=== PATIENT | female | born 1935 | race Caucasian/White ===

== ENCOUNTER → 2016-12-04 | Outpatient (CLI) | payer MEDICARE ==
[~2016-12-04] MED LIST: AMLO10 PO; ASPI1TAB69 PO; CALC500T35 PO; DONE10TA7 PO; ESTR0.62 VAGINAL; ESTR1.25 PO; FENT12DI T-DERMAL; FENT25DI T-DERMAL; FURO1TAB60 PO; GABA300C5 PO; HYDR-3533 PO; HYDR-755 PO; MIRA0.752 PO; MULT1TAB84 PO; POTA1TAB4 PO; PREV30CA11 PO; VENTAER INH
[2016-12-04 14:39] LABS: BASOPHIL # 0.1 TH/MM3 (0-0.2); BASOPHIL % 0.8 % (0.0-2.0); EOSINOPHIL # 0.5 TH/MM3 (0-0.4); EOSINOPHIL % 7.1 % (0.0-4.0); HEMATOCRIT 39.3 % (35.0-46.0); HEMO FLAGS DIFF FINAL; LYMPH % 39.1 % (9.0-44.0); LYMPHOCYTE # 2.6 TH/MM3 (1.0-4.8); MEAN CELL VOLUME 91.7 FL (80.0-100.0); MEAN CORPUSCULAR HEMOGLOBIN 30.5 PG (27.0-34.0); MEAN CORPUSCULAR HGB CONC 33.3 % (32.0-36.0); PLATELET COUNT 207 TH/MM3 (150-450); RED BLOOD COUNT 4.29 MIL/MM3 (4.00-5.30); RED CELL DISTRIBUTION WIDTH 13.1 % (11.6-17.2); WHITE BLOOD COUNT 6.6 TH/MM3 (4.0-11.0)
[2016-12-04 14:46] LABS: BACTERIA, URINE RARE /hpf; BLOOD, URINE NEG (NEG); COMMENT (UR) CULT NOT INDICATED; CULTURE IF INDICATED CULT NOT INDICATED; GLUCOSE,URINE NEG (NEG); KETONE, URINE NEG (NEG); NITRITE,URINE NEG (NEG); SQUAMOUS EPITHELIAL CELL URINE <1 /hpf (0-5); URINE COLOR LIGHT-YELLOW (YELLW/STRAW)
[2016-12-04 15:09] LABS: ALKALINE PHOSPHATASE 63 U/L (45-117); ALT (GPT) 24 U/L (10-53); ANION GAP 6 MEQ/L (5-15); AST (GOT) 20 U/L (15-37); BICARBONATE 31.5 MEQ/L (21.0-32.0); BLOOD UREA NITROGEN 14 MG/DL (7-18); CHLORIDE 103 MEQ/L (98-107); GLOMERULAR FILTRATION RATE 69 ML/MIN (>89); GLUCOSE,FASTING 93 MG/DL (74-99); POTASSIUM 3.9 MEQ/L (3.5-5.1); SODIUM (NA) 140 MEQ/L (136-145); TOTAL BILIRUBIN ADULT 0.2 MG/DL (0.2-1.0)
== END ==
LOC: CPRE 13:50
PROVIDERS: ATTEND Obstetrics & Gynecology Gynecology
DX: Z01.812 Encounter for preprocedural laboratory examination (principal); N39.3 Stress incontinence (female) (male)
CPT/HCPCS: 36415; 80053; 81001; 85025

== ENCOUNTER → 2016-12-10 | Day surgery (SDC) | payer MEDICARE ==
--- NOTE | 2016-12-04 14:59 | MH ---
cc: MARLEE WOLFE MD, EUGENE M. MD DATE OF ADMISSION: 12/10/2016 DATE OF : 1935 REASON FOR ADMISSION The patient is admitted for transobturator sling. HISTORY OF PRESENT ILLNESS The patient is an 81-year-old white female, 3, para 3, who has had issues with stress urinary incontinence since she has undergone a pelvic repair procedure in May 2016. At the time of the procedure she had significant pelvic organ prolapse, stage III. Postoperatively she has done well except has demonstrated de angelika stress incontinence. Urine cultures have been negative. Her urodynamic studies show no obstructive uropathy, no detrusor instability. Her volumes are 153/215/233 with a leak point at 155. The patient notes that the incontinence is impacting negatively on her quality of life and wants to proceed with a transobturator sling procedure. PAST MEDICAL HISTORY 1. Chronic back pain. 2. Neuropathy, uncertain etiology. 3. Hypertension. 4. Osteoporosis. 5. Osteoarthritis. 6. Atrial fibrillation. 7. Restless leg syndrome. 8. Asthma. PAST SURGICAL HISTORY 1. Total vaginal hysterectomy. 2. Cholecystectomy. 3. Appendectomy. 4. Thyroid tumor removal. 5. Bladder procedure. 6. Anterior and posterior repair x3. 7. InterStim placement with removal. 8. Tonsillectomy. 9. Vaginal vault suspension. ALLERGIES CYMBALTA. SOCIAL HISTORY . Good social support. No alcohol or drugs. 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 Hysterectomy was for benign condition. OB HISTORY Three vaginal deliveries, largest baby 8 pounds. MEDICATIONS 1. Percocet 30 mg q. daily. 2. Mirapex one q. daily. 3. Norvasc 10 mg q. daily. 4. Hydrocodone 5 mg q.4h. p.r.n. 5. Gabapentin 300 mg t.i.d. 6. Furosemide 40 mg q. daily. 7. Fentanyl patch, one patch q.3 days. 8. Vaginal estrogen cream every other day. 9. Premarin 1.25 p.o. q. daily. 10.Albuterol inhaler p.r.n. FAMILY HISTORY Noncontributory. REVIEW OF SYSTEMS As above. No chest pain, orthopnea, PND. No nausea, vomiting, fever or chills. No vaginal discharge. PHYSICAL EXAMINATION VITAL SIGNS: She is afebrile. Vital signs stable. Blood pressure 160/80. Weight 145, BMI 25, height 5 feet 4 inches. GENERAL: The patient is alert and oriented in no acute distress. No sign of cognitive dysfunction or depression. HEENT: Within normal limits. NECK: Supple. No JVD. CHEST: Clear. HEART: Regular rate and rhythm. ABDOMEN: Soft, nontender. No hepatosplenomegaly. No CVA tenderness. PELVIC: Exam will be detailed under anesthesia. EXTREMITIES: Normal. SKIN: Without rashes. NEUROLOGIC: Nonfocal. No DVT signs. ASSESSMENT Patient with de angelika stress incontinence following pelvic support procedure. DISCUSSION/PLAN The patient and I discussed options for management and treatment. She is aware of the risks, benefits and alternatives of the planned procedure including damage to surrounding organs, bleeding, infection, possibility of urinary retention and need for catheterization long-term. Also, aware of the possibility that the stress incontinence may not be remedied. The patient reports a distant history of possible prior sling placement but would not be able to obtain any records to support that. On clinical exam there is no sling that I can identify and with her prior anterior repair we do not see a sling, but if the sling is there that would definitely increase her risk of complications. At this point we anticipate outpatient procedure. She will use DVT prophylaxis with sequential compression device and Ancef two grams IV for antibiotic prophylaxis. MD SUJATA Galvez/BT /2:07 PM /2:45 PM
[~2016-12-10] MED LIST changes: +ACETAMINOPHEN 1000 MG/100 ML VIAL IV ONE; +APREPITANT 40 MG CAP ONE; +CHLORHEXIDINE GLUCONATE 2 % 1 PACK (2 CLOTHS) TOPICAL PRN; +DEXAMETHASONE SOD PHOS 4 MG/ML VIAL ONE; +DO NOT ADM ANY ANTICOAGULANT DRUGS PRN; +ESTROGENS CONJUGATED VAG CREA 15 APPL/30 GM TUBE ONE; +FAMOTIDINE 20 MG/2 ML VIAL ONE; +FLUORESCEIN SOD 10% SOLN 500 MG/5 ML AMP ONE; +INSULIN HUMAN REGULAR 1,000 UNITS/10 ML VIAL SQ PRN; +KETOROLAC TROMETHAMINE 10 MG TAB PO PRN; +KETOROLAC TROMETHAMINE 30 MG/ML (IVP) VIAL IV PUSH PRN; +KETOROLAC TROMETHAMINE 60 MG/2 ML (IM) VIAL IM ONE; +KETOROLAC TROMETHAMINE 60 MG/2 ML (IM) VIAL IM PRN; +LACTATED RINGER'S 1000 ML IV PRN; +LIDOCAINE 1%/EPINEPHrine 1:100,000 SOLN 50 ML VIAL ONE; +METHYLENE BLUE 10 MG/ML VIAL OTHER ONE; +METOPROLOL TARTRATE 25 MG TAB PO PRN; +METOPROLOL TARTRATE 5 MG/5 ML VIAL IV PUSH PRN; +METOPROLOL TARTRATE 5 MG/5 ML VIAL ONE; +MIDAZOLAM HCL 2 MG/2 ML VIAL ONE; +NEOSTIGMINE 3 MG/3 ML SYR IV ONE; +ONDANSETRON HCL 4 MG/2 ML VIAL IV PUSH ONE; +ONDANSETRON HCL 4 MG/2 ML VIAL IV PUSH PRN; +POVIDONE IODINE 5% (ANTISEPSIS KIT) 4 APPLICATIONS EACH NARE PRN; +PROPOFOL 200 MG/20 ML AMP IV ONE; +SODIUM CHLORID 0.9% 500 ML IV PRN; +ceFAZolin 2 GM PREMIX 50 ML IV SCH; +ePHEDrine/NS 25 MG/5 ML SYR IV ONE; +fentaNYL CITRATE 250 MCG/5 ML AMP ONE
[2016-12-10 06:00] VITALS: BP 140/69; PULSE 75; RESP 16; TEMP 98.7; O2SAT 99
--- NOTE | 2016-12-10 09:43 | MP ---
cc: MARLEE WOLFE MD DATE OF SURGERY 12/10/2016 PREOPERATIVE DIAGNOSIS Stress urinary incontinence. POSTOPERATIVE DIAGNOSES Stress urinary incontinence. Cystocele midline, grade 2. PROCEDURE 1. Transobturator midurethral sling [employer] manufactured by [email or web address], polypropylene. 2. Anterior repair. 3. Diagnostic cystoscopy. SURGEON MD Homar ANESTHESIA General, mask. ESTIMATED BLOOD LOSS 25 cc. URINE OUTPUT 200 cc. FLUIDS 1000 cc crystalloids TER[employer]ZZ[employer]LE [employer] [place] x 2. FINDINGS External genitalia poorly estrogenized. POP-Q score: Aa is -1, Ap is -2. Point C is -6. Total vaginal length is 8. Genital hiatus is 5. Perineal body is 5. Following repair, Aa is 3. The cystoscopy following repair shows normal trigone, good coaptation of urethra. Ureteral orifices patent x 2. Dome and base of bladder are normal. SPECIMENS None. COMPLICATIONS None. DISPOSITION To Recovery stable. COUNTS Needle and sponge counts correct. DRAINS Horton catheter. ANTIBIOTIC PROPHYLAXIS Ancef 2 grams IV. DVT PROPHYLAXIS Sequential compression device. TIME-OUT PROCEDURE Per protocol. SUMMARY OF INDICATIONS AND PROCEDURE The patient history of de angelika stress incontinence following pelvic repair. She had significant pelvic organ prolapse repaired in May of 2016, developed postoperatively stress urinary incontinence that was unresponsive to estrogen therapy and physical therapy. Urodynamic studies showed leak point pressure at 155 with a total capacity of 250, no detrusor instability, no significant post-void residual. Decision was made to proceed with repair with a sling. PROCEDURE The patient was taken to the operating theatre, identified, prepped and draped in a fashion appropriate for the planned procedure. She was placed in dorsal lithotomy position with careful attention paid to placement of legs in stirrups to avoid undue stress to sensitive neurovascular structures. The above findings were noted, neurovascular integrity documented. A Horton catheter was placed, methylene blue was instilled into the bladder. The obturator foramen were identified on each side, infiltrated with epinephrine/lidocaine solution. The urethral length was identified by palpating the Horton bulb. We infiltrated the anterior vaginal wall with epinephrine/lidocaine solution, made a midline incision with sharp scissors, took this up to approximately 1 cm from the urethral meatus and down to approximately 2 cm from the vaginal apex, mobilized the bladder and the urethra. There was some scarring around the mid-urethral area suggestive or prior sling but there was no synthetic sling that I could identify. It is possible she may have had an autologous sling placed prior or perhaps a biologic, but there was no synthetic material identified. The C-hook was used to place from the lateral to medial position on the right side without complication. On the left side the same procedure was performed. There was no spill of methylene blue from the bladder or urethra. The sling was placed and then a scalpel handle was used as a spacer to cinch the sling into position in the mid-urethra. There was a small amount of bleeding on the left side which was rendered hemostatic with a [id number] suture. Anterior repair was performed in standard fashion. The vaginal mucosa was trimmed. The vaginal mucosa was closed with a delayed absorbable [id number] suture series of sutures. Hemostatic matrix was used to augment hemostasis to obviate the need for packing. Cystoscopy was performed using a 17-[place] bridge, a 70-degree scope. The above findings were noted. Neurovascular integrity was documented. The procedure was concluded, the patient reversed from anesthesia and taken to the recovery room in stable condition. The small stab incisions in the groin were closed with Dermabond. MD SUJATA Galvez/NAM /9:10 AM /9:17 AM
[2016-12-10 10:35] VITALS: BP 135/63; PULSE 82; RESP 16; TEMP 96.9; O2SAT 98
== END | disposition home or self-care (01) ==
LOC: HSDC 05:51
PROVIDERS: ATTEND Obstetrics & Gynecology Gynecology
DX: N39.3 Stress incontinence (female) (male) (principal); N81.11 Cystocele, midline; I48.91 Unspecified atrial fibrillation; I10 Essential (primary) hypertension; J45.909 Unspecified asthma, uncomplicated; G62.9 Polyneuropathy, unspecified; G25.81 Restless legs syndrome
CPT/HCPCS: 00860; 57240; 57288; 86850; 86900; 86901; C1771; J0131; J0690; J1100; J1885; J2250; J2405; J2710; J3010; J7120; J8501

== ENCOUNTER 2017-09-10 09:13 | Emergency (ER) | payer MEDICARE ==
[~2017-09-10] VITALS: Ht 162.6 cm; Wt 67.4 kg
[~2017-09-10 09:13] MED LIST changes: -ACETAMINOPHEN 1000 MG/100 ML VIAL IV ONE; -APREPITANT 40 MG CAP ONE; +CALC12502 PO; -CALC500T35 PO; -CHLORHEXIDINE GLUCONATE 2 % 1 PACK (2 CLOTHS) TOPICAL PRN; -DEXAMETHASONE SOD PHOS 4 MG/ML VIAL ONE; -DO NOT ADM ANY ANTICOAGULANT DRUGS PRN; -ESTROGENS CONJUGATED VAG CREA 15 APPL/30 GM TUBE ONE; -FAMOTIDINE 20 MG/2 ML VIAL ONE; -FLUORESCEIN SOD 10% SOLN 500 MG/5 ML AMP ONE; -INSULIN HUMAN REGULAR 1,000 UNITS/10 ML VIAL SQ PRN; -KETOROLAC TROMETHAMINE 10 MG TAB PO PRN; -KETOROLAC TROMETHAMINE 30 MG/ML (IVP) VIAL IV PUSH PRN; -KETOROLAC TROMETHAMINE 60 MG/2 ML (IM) VIAL IM ONE; -KETOROLAC TROMETHAMINE 60 MG/2 ML (IM) VIAL IM PRN; -LACTATED RINGER'S 1000 ML IV PRN; -LIDOCAINE 1%/EPINEPHrine 1:100,000 SOLN 50 ML VIAL ONE; -METHYLENE BLUE 10 MG/ML VIAL OTHER ONE; -METOPROLOL TARTRATE 25 MG TAB PO PRN; -METOPROLOL TARTRATE 5 MG/5 ML VIAL IV PUSH PRN; -METOPROLOL TARTRATE 5 MG/5 ML VIAL ONE; -MIDAZOLAM HCL 2 MG/2 ML VIAL ONE; -MULT1TAB84 PO; -NEOSTIGMINE 3 MG/3 ML SYR IV ONE; -ONDANSETRON HCL 4 MG/2 ML VIAL IV PUSH ONE; -ONDANSETRON HCL 4 MG/2 ML VIAL IV PUSH PRN; -POVIDONE IODINE 5% (ANTISEPSIS KIT) 4 APPLICATIONS EACH NARE PRN; -PREV30CA11 PO; +PREV30CA36 PO; -PROPOFOL 200 MG/20 ML AMP IV ONE; -SODIUM CHLORID 0.9% 500 ML IV PRN; -ceFAZolin 2 GM PREMIX 50 ML IV SCH; -ePHEDrine/NS 25 MG/5 ML SYR IV ONE; -fentaNYL CITRATE 250 MCG/5 ML AMP ONE
[2017-09-10 09:20] VITALS: BP 127/73; PULSE 95; RESP 18; TEMP 99.8; O2SAT 96
--- NOTE | 2017-09-10 09:40 | PD ---
HPI Chief Complaint: Cold / Flu Symptoms Time Seen by Provider: 09:27 Travel History International Travel<30 days: No Contact w/Intl Traveler<30days: No Traveled to known affect area: No History of Present Illness HPI This 82-year-old female is complaining of feeling sick since yesterday around 2: 00. She says she's been very tired and has been achy all over. She's had chills and has had headache and cough. He woke up this morning with a headache and coughing. She feels a little bit short of breath. She has a history of asthma. She does not smoke. Her is also a patient here and has similar symptoms. PFSH Past Medical History Hx Anticoagulant Therapy: No Arthritis: Yes Asthma: Yes (ONLY AROUND CIGARETTE SMOKE) Cancer: No Cardiovascular Problems: Yes (HTN) Diabetes: No Endocrine: No Gastrointestinal Disorders: Yes (ACID REFLUX) GERD: Yes Genitourinary: Yes (INCONTINENCE) Hepatitis: No Hiatal Hernia: No Hypertension: Yes Immune Disorder: No Musculoskeletal: Yes (OA/PAIN/BACK AND NECK PROBLEMS) Neurologic: Yes (NEUROPATHY, RESTLESS LEG, SHINGLES) Psychiatric: No Reproductive: No Respiratory: Yes (ASTHMA) Immunizations Current: Yes Thyroid Disease: No ?: Not Past Surgical History Abdominal Surgery: Yes (HYSTERECTOMY,NEFTALY,APPENDECTOMY) AICD: No Appendectomy: Yes Body Medical Devices: BREAST IMPLANTS Cardiac Surgery: No Cholecystectomy: Yes (OPEN) Ear Surgery: No Endocrine Surgery: Yes (BENIGN THYROID TUMOR) Eye Surgery: Yes (CATARACT SURGERY) Genitourinary Surgery: Yes (4 BLADDER PROCEDURES/SLING/STIMULATOR) Gynecologic Surgery: No Hysterectomy: Yes Joint Replacement: No Oral Surgery: Yes (TONSILLECTOMY) Pacemaker: No Thoracic Surgery: Yes (BREAST BIOPSIES/BENIGN) Other Surgery: Yes (BLADDER STIMULATOR) Social History Alcohol Use: Yes (RARE) Tobacco Use: No Substance Use: No Allergies-Medications (Allergen,Severity, Reaction): Coded Allergies: adhesive (Unverified Allergy, Severe, Irritation, 09/10/17) duloxetine (Unverified Allergy, Severe, Nausea/Vomiting, 09/10/17) Reported Meds & Prescriptions Reported Meds & Active Scripts Active Premarin Vaginal (Estrogens, Conjugated Vaginal) 0.625 Mg/Gm Cream 1 Gm VAGINAL HS Reported Zofran (Ondansetron HCl) 4 Mg Tab 4 Mg PO Q6HR PRN Aspir-81 (Aspirin) 81 Mg Tabdr 1 Tab PO DAILY [place] 5-325 Tablet (Hydrocodone/Acetaminophen) 5 Mg-325 Mg Tablet 1 Tab PO TID PRN Fentanyl Patch 72 HR (Fentanyl) 50 Mcg/Hr Patch 50 Mcg T-DERMAL Q72H Remove old patch when new one placed. Donepezil 10 Mg Tab 10 Mg PO HS K-Tab (Potassium Chloride) 20 Meq Tab 20 Meq PO DAILY PRN Mirapex ER 24 HR (Pramipexole Dihydrochloride) 0.75 Mg Tab 0.75 Mg PO HS Prevacid (Lansoprazole) 30 Mg Capdr 30 Mg PO BID Norvasc (Amlodipine Besylate) 10 Mg Tab 10 Mg PO BID Gabapentin 300 Mg Cap 900 Mg PO TID Lasix (Furosemide) 40 Mg Tab 40 Mg PO DAILY PRN Premarin (Estrogens Conjugated) 1.25 Mg Tab 1.25 Mg PO DAILY Calcium (Oyster Shell) 500 Mg Tab 1 Tab PO BID Ventolin Hfa 18 GM Inh (Albuterol Sulfate) 90 Mcg/Act Aer 2 Puff INH Q6H PRN Review of Systems General / Constitutional: Positive: Fever, Chills Eyes: No: Diploplia, Blurred Vision HENT: Positive: Headaches, Sore Throat Cardiovascular: No: Chest Pain or Discomfort, Palpitations Respiratory: Positive: Cough, No: Shortness of Breath Gastrointestinal: No: Vomiting, Diarrhea Genitourinary: No: Urgency Musculoskeletal: Positive: Myalgias Skin: No Rash, No Itching Neurologic: Positive: Weakness Endocrine: No: Heat Intolerance, Cold Intolerance Hematologic/Lymphatic: No: Easy Bruising Physical Exam Narrative GENERAL: Well-developed female SKIN: Focused skin assessment warm/dry. HEAD: Atraumatic. Normocephalic. EYES: Pupils equal and round. No scleral icterus. No injection or drainage. ENT: No nasal bleeding or discharge. Mucous membranes pink and moist. No erythema of the posterior pharynx without exudate NECK: Trachea midline. No JVD. CARDIOVASCULAR: Regular rate and rhythm. No murmur appreciated. RESPIRATORY: No accessory muscle use. Clear to auscultation. Breath sounds equal bilaterally. GASTROINTESTINAL: Abdomen soft, non-tender, nondistended. Hepatic and splenic margins not palpable. MUSCULOSKELETAL: No obvious deformities. No clubbing. No cyanosis. No edema. NEUROLOGICAL: Awake and alert. No obvious cranial nerve deficits. Motor grossly within normal limits. Normal speech. PSYCHIATRIC: Appropriate mood and affect; insight and judgment normal. Data Data Last Documented VS Vital Signs Date Time Temp Pulse Resp B/P (MAP) Pulse Ox O2 Delivery O2 Flow Rate FiO2 09/10/17 09:36 16 95 Room Air 09/10/17 09:20 99.8 95 127/73 (91) Orders Orders Urinalysis - C+S If Indicated (09/10/17 09:36) Influenzae A/B Antigen (09/10/17 09:36) Chest, Single Ap (09/10/17 09:36) Oseltamivir (Tamiflu) (09/10/17 09:45) Urine Culture (09/10/17 09:40) Labs Laboratory Tests Test 09/10/17 09:40 Urine Collection Type CLEAN CATCH Urine Color YELLOW Urine Turbidity SLIGHTY CLOUDY Urine pH 6.5 Urine Specific [place] 1.016 Urine Protein NEG mg/dL Urine Glucose (UA) NEG mg/dL Urine Ketones NEG mg/dL Urine Occult Blood NEG Urine Nitrite NEG Urine Bilirubin NEG Urine Leukocyte Esterase SMALL Urine WBC 15-19 /hpf Urine WBC Clumps FEW Urine Bacteria MANY /hpf Microscopic Urinalysis Comment CULTURE INDICATED Urine Collection Time 0940 MDM Medical Decision Making Medical Screen Exam Complete: Yes Emergency Medical Condition: Yes Medical Record Reviewed: Yes Differential Diagnosis Differential includes UTI, influenza, pneumonia Narrative Course There is negative for pneumonia. Clinically I believe this patient has influenza. Her has similar symptoms. Urine does show evidence of UTI in the patient was admitted for urosepsis. I believe that today the urinary tract infection is an incidental finding. She will however be treated. I'm going to put her on both Tamiflu and Bactrim Diagnosis Primary Impression: Influenza Additional Impression: UTI (urinary tract infection) Qualified Codes: N39.0 - Urinary tract infection, site not specified Scripts Sulfamethoxazole-Trimethoprim (Bactrim DS) 800-160 Mg Tab 1 TAB PO BID for Infection, #14 TAB 0 Refills Prov: Matthew Calero MD 09/10/17 Oseltamivir (Tamiflu) 75 Mg Cap 75 MG PO BID for Mgmt Viral Infection for 5 Days, #10 CAP 0 Refills Prov: Matthew Calero MD 09/10/17 Disposition: 01 DISCHARGE HOME Condition: Stable Matthew Calero MD Sep 10, 2017 09:40
[2017-09-10] MEDS ORDERED: OSELTAMIVIR PHOSPHATE 75 MG CAP PO ONE (09:45)
[2017-09-10] MEDS ORDERED: FENT50DI T-DERMAL (09:56)
[2017-09-10 10:03] LABS: BILIRUBIN, URINE NEG (NEG); BLOOD, URINE NEG (NEG); GLUCOSE,URINE NEG (NEG); KETONE, URINE NEG (NEG); NITRITE,URINE NEG (NEG); PH, URINE 6.5 (5.0-8.5); URINE LEUKOCYTE ESTERASE SMALL (NEG)
[2017-09-10] MEDS ORDERED: NORC5TAB PO (10:04)
[2017-09-10] MEDS ORDERED: ASPI81TA81 PO (10:04)
[2017-09-10] MEDS ORDERED: ZOFR4TAB PO (10:05)
[2017-09-10 10:07] LABS: URINE COLOR YELLOW (YELLW/STRAW)
[2017-09-10 10:08] LABS: BACTERIA, URINE MANY /hpf; WHITE BLOOD CELL CLUMPS FEW
[2017-09-10 10:10] LABS: WBC, URINE 15-19 /hpf (0-5)
--- NOTE | 2017-09-10 10:44 | RADRPT ---
EXAM DATE/TIME: 09/10/2017 10:33 [facility] COMPARISON: No previous studies available for comparison. INDICATIONS : Cough, fever, body aches MEDICAL HISTORY : None. SURGICAL HISTORY : None. ENCOUNTER: Initial ACUITY: 2 days PAIN SCORE: 2/10 LOCATION: Bilateral chest FINDINGS: A single view of the chest demonstrates the lungs to be symmetrically aerated without evidence of mas s, infiltrate or effusion. The cardiomediastinal contours are unremarkable. Osseous structures are intact. CONCLUSION: No acute disease. Keo Vargas MD on September 10, 2017 at 10:40 Board Certified Radiologist. This report was verified electronically.
[2017-09-10] MEDS ORDERED: OSEL75 PO ×2 (11:15→13:15)
[2017-09-10] MEDS ORDERED: SULFAMETHOXAZOLE-TRIMETHOPRIM DS 800-160 MG TAB PO ONE (11:15)
[2017-09-10] MEDS ORDERED: BACT800T5 PO ×2 (11:15→13:15)
[2017-09-10 11:33] VITALS: BP 117/68
== END 2017-09-10 11:36 | disposition home or self-care (01) ==
LOC: PHED 09:13
DX: J11.1 Influenza due to unidentified influenza virus with other respiratory manifestations (principal); N39.0 Urinary tract infection, site not specified; B96.20 Unspecified Escherichia coli [E. coli] as the cause of diseases classified elsewhere; B96.1 Klebsiella pneumoniae [K. pneumoniae] as the cause of diseases classified elsewhere; J45.909 Unspecified asthma, uncomplicated; M19.90 Unspecified osteoarthritis, unspecified site; I10 Essential (primary) hypertension; K21.9 Gastro-esophageal reflux disease without esophagitis
CPT/HCPCS: 71045; 81001; 87077; 87086; 87186; 87804; 99284

== ENCOUNTER 2017-09-27 11:17 | Observation (INO) | payer MEDICARE ==
[~2017-09-27] VITALS: Ht 162.6 cm; Wt 73.8 kg
[~2017-09-27 11:17] MED LIST changes: -ASPI1TAB69 PO; +ASPI81TA81 PO; +BACT800T5 PO; -FENT12DI T-DERMAL; -FENT25DI T-DERMAL; +FENT50DI T-DERMAL; -HYDR-3533 PO; -HYDR-755 PO; +NORC5TAB PO; +OSEL75 PO; +ZOFR4TAB PO
[2017-09-27 11:21] VITALS: BP 166/71; PULSE 84; RESP 18; TEMP 97.5; O2SAT 100
[2017-09-27] MEDS ORDERED: SODIUM CHLORID 0.9% 500 ML INJ 500 ML IV ONE (11:45)
[2017-09-27 11:48] LABS: BILIRUBIN, URINE NEG (NEG); BLOOD, URINE NEG (NEG); GLUCOSE,URINE NEG (NEG); KETONE, URINE NEG (NEG); NITRITE,URINE NEG (NEG); URINE LEUKOCYTE ESTERASE SMALL (NEG)
--- NOTE | 2017-09-27 11:48 | PD ---
HPI Chief Complaint: Cold / Flu Symptoms Time Seen by Provider: 11:26 Travel History International Travel<30 days: No Contact w/Intl Traveler<30days: No Traveled to known affect area: No History of Present Illness HPI 82-year-old female that presents to the ED for evaluation of chills since 4:00 this morning. Per patient she's had some runny nose as well as body aches and feeling weak since 4:00 this morning. She states that yesterday she felt fine. About 2 weeks ago she was seen here and had lab workup that was negative for anything other than possible UTI. She was treated for the flu secondary to her symptoms at the time that she was negative for the influenza test. She was started on Tamiflu and Bactrim and did well other than having some nausea from the medications. She denies any symptoms other than the one stated above. She states that her pain is 7 out of 10 on her body. Denies any specific chest pain or shortness of breath. She does have a history of asthma but denies any shortness of breath at this time. Per family members she was having some labored breathing when she was walking. She denies any recent travel. No other medical issues. She went to see her doctor on Saturday and had a urine that showed that she had her UTI gone. She denies any back pain or abdominal pain. No diarrhea. No bowel movement changes or urinary changes. No other medical problems at this time. She does have contact with her who has been admitted to the hospital for CHF and possible flu. PFSH Past Medical History Hx Anticoagulant Therapy: Yes (BABY ASA DAILY) Arthritis: Yes Asthma: Yes (ONLY AROUND CIGARETTE SMOKE) Cancer: Yes (left outer nare ) Cardiovascular Problems: Yes (HTN) Dementia: Yes Diabetes: No Endocrine: No Gastrointestinal Disorders: Yes (ACID REFLUX) GERD: Yes Genitourinary: Yes (INCONTINENCE) Hepatitis: No Hiatal Hernia: No Hypertension: Yes Immune Disorder: No Musculoskeletal: Yes (OA/PAIN/BACK AND NECK PROBLEMS) Neurologic: Yes (NEUROPATHY, RESTLESS LEG, SHINGLES) Psychiatric: No Reproductive: No Respiratory: Yes (ASTHMA) Immunizations Current: Yes Thyroid Disease: No ?: Not Menopausal: Yes Past Surgical History Abdominal Surgery: Yes (HYSTERECTOMY,NEFTALY,APPENDECTOMY) AICD: No Appendectomy: Yes Body Medical Devices: BREAST IMPLANTS Cardiac Surgery: No Cholecystectomy: Yes Ear Surgery: No Endocrine Surgery: Yes (BENIGN THYROID TUMOR) Eye Surgery: Yes (CATARACT SURGERY) Genitourinary Surgery: Yes (SEVERAL BLADDER PROCEDURES/SLING/STIMULATOR) Gynecologic Surgery: No Hysterectomy: Yes Joint Replacement: No Oral Surgery: Yes (TONSILLECTOMY) Pacemaker: No Thoracic Surgery: Yes (BREAST BIOPSIES/BENIGN) Tonsillectomy: Yes Other Surgery: Yes (BLADDER STIMULATOR) Social History Alcohol Use: Yes (RARE) Tobacco Use: No Substance Use: No Allergies-Medications (Allergen,Severity, Reaction): Coded Allergies: adhesive (Unverified Allergy, Severe, Irritation, 09/27/17) duloxetine (Unverified Allergy, Severe, Nausea/Vomiting, 09/27/17) Reported Meds & Prescriptions Reported Meds & Active Scripts Active Premarin Vaginal (Estrogens, Conjugated Vaginal) 0.625 Mg/Gm Cream 1 Gm VAGINAL HS Reported Zofran (Ondansetron HCl) 4 Mg Tab 4 Mg PO Q6HR PRN Aspir-81 (Aspirin) 81 Mg Tabdr 1 Tab PO DAILY [place] 5-325 Tablet (Hydrocodone/Acetaminophen) 5 Mg-325 Mg Tablet 1 Tab PO TID PRN Fentanyl Patch 72 HR (Fentanyl) 50 Mcg/Hr Patch 50 Mcg T-DERMAL Q72H Remove old patch when new one placed. Donepezil 10 Mg Tab 10 Mg PO HS K-Tab (Potassium Chloride) 20 Meq Tab 20 Meq PO DAILY PRN Mirapex ER 24 HR (Pramipexole Dihydrochloride) 0.75 Mg Tab 0.75 Mg PO HS Prevacid (Lansoprazole) 30 Mg Capdr 30 Mg PO BID Norvasc (Amlodipine Besylate) 10 Mg Tab 10 Mg PO BID Gabapentin 300 Mg Cap 900 Mg PO TID Lasix (Furosemide) 40 Mg Tab 40 Mg PO DAILY PRN Premarin (Estrogens Conjugated) 1.25 Mg Tab 1.25 Mg PO DAILY Calcium (Oyster Shell) 500 Mg Tab 1 Tab PO BID Ventolin Hfa 18 GM Inh (Albuterol Sulfate) 90 Mcg/Act Aer 2 Puff INH Q6H PRN Review of Systems Except as stated in HPI: all other systems reviewed are Neg Physical Exam Narrative GENERAL: Well-nourished, well-developed patient in no apparent distress. SKIN: Warm and dry. HEAD: Atraumatic. Normocephalic. EYES: Pupils equal and round reactive to light and accommodation. No scleral icterus. No injection or drainage. ENT: No nasal bleeding or discharge. Mucous membranes pink and moist. TMs are clear with no sign of infection or perforation. No mastoid tenderness. Ear canals are intact bilaterally. No lymphadenopathy. Nostril mucosa is red and moist with clear mucus noted. No sinus tenderness to palpation noted. Tonsils are not enlarged or swollen. No ulvua Deviation. Tongue is midline. NECK: Trachea midline. No JVD. No meningeal signs noted CARDIOVASCULAR: Regular rate and rhythm. RESPIRATORY: No accessory muscle use. Clear to auscultation. Breath sounds equal bilaterally. GASTROINTESTINAL: Abdomen soft, non-tender, nondistended. Hepatic and splenic margins not palpable. MUSCULOSKELETAL: Extremities without clubbing, cyanosis, or edema. No obvious deformities. NEUROLOGICAL: Awake and alert. No obvious cranial nerve deficits. Motor grossly within normal limits. Five out of 5 muscle strength in the arms and legs. Normal speech. PSYCHIATRIC: Appropriate mood and affect; insight and judgment normal. Data Data Last Documented VS Vital Signs Date Time Temp Pulse Resp B/P (MAP) Pulse Ox O2 Delivery O2 Flow Rate FiO2 09/27/17 11:21 97.5 84 18 166/71 (102) 100 Orders Orders Complete Blood Count With Diff (09/27/17 11:35) Comprehensive Metabolic Panel (09/27/17 11:35) Lipase (09/27/17 11:35) Lactic Acid (09/27/17 11:35) Urinalysis - C+S If Indicated (09/27/17 11:35) Iv Access Insert/Monitor (09/27/17 11:35) Chest, Single Ap (09/27/17 11:35) Influenzae A/B Antigen (09/27/17 11:35) Sodium Chlorid 0.9% 500 Ml Inj (Ns 500 M (09/27/17 11:45) Urine Culture (09/27/17 11:20) Ct Abd/Pel W Iv Contrast(Rout) (09/27/17 ) Ceftriaxone Inj (Rocephin Inj) (09/27/17 12:45) Admit Order (Ed Use Only) (09/27/17 12:39) Labs Laboratory Tests Test 09/27/17 11:20 09/27/17 11:50 Urine Collection Type CLEAN CATCH Urine Color YELLOW Urine Turbidity CLEAR Urine pH 6.0 Urine Specific [place] 1.007 Urine Protein NEG mg/dL Urine Glucose (UA) NEG mg/dL Urine Ketones NEG mg/dL Urine Occult Blood NEG Urine Nitrite NEG Urine Bilirubin NEG Urine Leukocyte Esterase SMALL Urine WBC 9-14 /hpf Urine Squamous Epithelial Cells 0-5 /hpf Urine Bacteria MOD /hpf Microscopic Urinalysis Comment CULTURE INDICATED White Blood Count 8.4 TH/MM3 Red Blood Count 4.46 MIL/MM3 Hemoglobin 13.8 GM/DL Hematocrit 41.5 % Mean Corpuscular Volume 93.2 FL Mean Corpuscular Hemoglobin 31.0 PG Mean Corpuscular Hemoglobin Concent 33.2 % Red Cell Distribution Width 12.9 % Platelet Count 255 TH/MM3 Mean Platelet Volume 8.3 FL Neutrophils (%) (Auto) 69.3 % Lymphocytes (%) (Auto) 21.5 % Monocytes (%) (Auto) 7.3 % Eosinophils (%) (Auto) 1.1 % Basophils (%) (Auto) 0.8 % Neutrophils # (Auto) 5.8 TH/MM3 Lymphocytes # (Auto) 1.8 TH/MM3 Monocytes # (Auto) 0.6 TH/MM3 Eosinophils # (Auto) 0.1 TH/MM3 Basophils # (Auto) 0.1 TH/MM3 CBC Comment DIFF FINAL Differential Comment Blood Urea Nitrogen 25 MG/DL Creatinine 0.83 MG/DL Random Glucose 119 MG/DL Total Protein 7.0 GM/DL Albumin 3.4 GM/DL Calcium Level 9.8 MG/DL Alkaline Phosphatase 70 U/L Aspartate Amino Transf (AST/SGOT) 16 U/L Alanine Aminotransferase (ALT/SGPT) 16 U/L Total Bilirubin 0.3 MG/DL Sodium Level 138 MEQ/L Potassium Level 3.8 MEQ/L Chloride Level 104 MEQ/L Carbon Dioxide Level 27.4 MEQ/L Anion Gap 7 MEQ/L Estimat Glomerular Filtration Rate 65 ML/MIN Lactic Acid Level 2.0 mmol/L Lipase 1587 U/L [facility] Medical Decision Making Medical Screen Exam Complete: Yes Emergency Medical Condition: Yes Medical Record Reviewed: Yes Interpretation(s) CBC & BMP Diagram 09/27/17 11:50 Total Protein 7.0, Albumin 3.4, Calcium Level 9.8, Alkaline Phosphatase 70, Aspartate Amino Transf (AST/SGOT) 16, Alanine Aminotransferase (ALT/SGPT) 16, Total Bilirubin 0.3 lactic acid of 2 UA shows leukerase esterase, bacteria and WBCs flu negative Last Impressions Chest X-Ray 09/27/17 1135 Signed Impressions: Service Date/Time: Wednesday, September 27, 2017 11:39 - CONCLUSION: No acute disease. Herman Morales MD Differential Diagnosis Influenza versus pneumonia versus sepsis versus urosepsis versus viral illness versus UTI Narrative Course 82-year-old female that presents to the ED for evaluation of chills. Patient was properly examined and was found to have signs and symptoms consistent with appears to be possibly viral illness but hard to assess. Patient's symptoms are nonspecific and that she does have some runny nose she does not appear to be calm certain about this. No cough. He was recently treated with Tamiflu for possible flutter she came negative for the influenza. I do recommend labs and imaging to rule out any sign of acute disease. Overall patient's vitals and physical exam are reassuring. Patient was given 500 mL bolus of fluid. Labs and imaging showed what appears to be acute pancreatitis. The results the patient she does appear to have epigastric pain with deep palpation that does not appear to be present before. Further talk to the patient apparently she is taking fentanyl patches and she had a procedure done on her back to help with pain that might be masking the symptoms that the patient might be having. Lipase is slightly elevated and do recommend further eval and possible admission for FOR improvement of symptoms. Family is concerned about this as well and the preferred admission versus discharge. Case was discussed with Dr. Valderrama for [facility] who recommends CT scan. Patient will be admitted for obs. Diagnosis Primary Impression: Pancreatitis, acute Qualified Codes: K85.90 - Acute pancreatitis without necrosis or infection, unspecified Admitting Information Admitting Physician Requests: Observation Saji Cabral Sep 27, 2017 11:48
[2017-09-27 11:52] LABS: URINE COLOR YELLOW (YELLW/STRAW)
[2017-09-27 11:54] LABS: BACTERIA, URINE MOD /hpf; SQUAMOUS EPITHELIAL CELL URINE 0-5 /hpf (0-5)
--- NOTE | 2017-09-27 11:58 | RADRPT ---
EXAM DATE/TIME: 09/27/2017 11:39 [facility] COMPARISON: CHEST SINGLE AP, September 10, 2017, 10:33. INDICATIONS : Fever, chills. MEDICAL HISTORY : None. SURGICAL HISTORY : None. ENCOUNTER: Initial ACUITY: 1 day PAIN SCORE: 0/10 LOCATION: Bilateral chest FINDINGS: A single view of the chest demonstrates the lungs to be symmetrically aerated without evidence of mas s, infiltrate or effusion. There is mild scarring The cardiomediastinal contours are unremarkable. Osseous structures are intact. CONCLUSION: No acute disease. Herman Morales MD on September 27, 2017 at 11:54 Board Certified Radiologist. This report was verified electronically.
[2017-09-27 12:02] LABS: AUTOMATED NEUTROPHIL # 5.8 TH/MM3 (1.8-7.7); BASOPHIL # 0.1 TH/MM3 (0-0.2); BASOPHIL % 0.8 % (0.0-2.0); EOSINOPHIL # 0.1 TH/MM3 (0-0.4); EOSINOPHIL % 1.1 % (0.0-4.0); HEMATOCRIT 41.5 % (35.0-46.0); HEMOGLOBIN 13.8 GM/DL (11.6-15.3); LYMPH % 21.5 % (9.0-44.0); LYMPHOCYTE # 1.8 TH/MM3 (1.0-4.8); MEAN CELL VOLUME 93.2 FL (80.0-100.0); MEAN CORPUSCULAR HGB CONC 33.2 % (32.0-36.0); MEAN PLATELET VOLUME 8.3 FL (7.0-11.0); MONO % 7.3 % (0.0-8.0); MONOCYTE # 0.6 TH/MM3 (0-0.9); NEUT % 69.3 % (16.0-70.0); PLATELET COUNT 255 TH/MM3 (150-450); RED BLOOD COUNT 4.46 MIL/MM3 (4.00-5.30); RED CELL DISTRIBUTION WIDTH 12.9 % (11.6-17.2); WHITE BLOOD COUNT 8.4 TH/MM3 (4.0-11.0)
[2017-09-27 12:09] LABS: CHLORIDE 104 MEQ/L (98-107); SODIUM (NA) 138 MEQ/L (136-145)
[2017-09-27 12:13] LABS: ALBUMIN 3.4 GM/DL (3.4-5.0); BICARBONATE 27.4 MEQ/L (21.0-32.0); BLOOD UREA NITROGEN 25 MG/DL (7-18); CALCIUM 9.8 MG/DL (8.5-10.1); GLUCOSE,RANDOM 119 MG/DL (74-106)
[2017-09-27 12:16] LABS: ALT (GPT) 16 U/L (10-53); AST (GOT) 16 U/L (15-37); CREATININE 0.83 MG/DL (0.50-1.00); GLOMERULAR FILTRATION RATE 65 ML/MIN (>89)
[2017-09-27 12:18] LABS: TOTAL BILIRUBIN ADULT 0.3 MG/DL (0.2-1.0)
[2017-09-27 12:19] LABS: ALKALINE PHOSPHATASE 70 U/L (45-117)
[2017-09-27] MEDS ORDERED: cefTRIAXone INJ 1,000 MG in SODIUM CHLORIDE 0.9% INJ 100 ML IV ONE (12:45)
[2017-09-27 12:56] VITALS: BP 164/68; PULSE 89; RESP 20; O2SAT 98
[2017-09-27] MEDS ORDERED: IOHEXOL 350 MG/ML 10 ML VIAL (for RAD DIAG) IVCONTRAST ONE (13:27)
--- NOTE | 2017-09-27 13:48 | RADRPT ---
EXAM DATE/TIME: 09/27/2017 13:18 [facility] COMPARISON: No previous studies available for comparison. INDICATIONS : Fever and chills. IV CONTRAST: 80 cc Omnipaque 350 (iohexol) IV ORAL CONTRAST: No oral contrast ingested. RADIATION DOSE: 10.37 CTDIvol (mGy) MEDICAL HISTORY : Dementia. Gastroesophageal reflux disease. Hypertension.Asthma. SURGICAL HISTORY : Appendectomy. Cholecystectomy.Hysterectomy.Bladder sling. ENCOUNTER: Initial ACUITY: 1 day PAIN SCALE: 0/10 LOCATION: Abdomen. TECHNIQUE: Volumetric scanning of the abdomen and pelvis was performed. Using automated exposure control and ad justment of the mA and/or kV according to patient size, radiation dose was kept as low as reasonably achievable to obtain optimal diagnostic quality images. DICOM format image data is available electro nically for review and comparison. FINDINGS: LOWER LUNGS: The visualized lower lungs are clear. LIVER: Homogeneous density without lesion. There is no dilation of the biliary tree. Post cholecystectomy c lips are noted. SPLEEN: Normal size without lesion. PANCREAS: Within normal limits. KIDNEYS: Normal in size and shape. There is no mass, stone or hydronephrosis. Bilateral simple renal cysts ar e identified. There is a 2.4 cm cyst off the lower pole of the right kidney 2 simple cyst off the upp er pole the left kidney the largest measuring 3.1 cm. ADRENAL GLANDS: Within normal limits. VASCULAR: There is no aortic aneurysm. BOWEL/MESENTERY: No diverticula are identified throughout the sigmoid colon. There is no active inflammatory vern nges. There is no evidence of abnormal fluid collections or free air. There is no evidence of ileus. ABDOMINAL WALL: Within normal limits. RETROPERITONEUM: There is no lymphadenopathy. BLADDER: No wall thickening or mass. REPRODUCTIVE: Uterus has been removed. INGUINAL: There is no lymphadenopathy or hernia. MUSCULOSKELETAL: Within normal limits for patient age. CONCLUSION: 1. No acute process. 2. Colonic diverticulosis. 3. Status post cholecystectomy and hysterectomy. 4. Bilateral simple renal cysts. Tien Marie MD on September 27, 2017 at 13:40 Board Certified Radiologist. This report was verified electronically.
[2017-09-27] MEDS ORDERED: POTASSIUM CHLORIDE 20 MEQ CONTROLLED RELEASE TAB PO PRN (14:00)
[2017-09-27] MEDS ORDERED: LACTULOSE SYRUP 20 GM/30 ML CUP PO PRN (14:15)
[2017-09-27] MEDS ORDERED: TEMAZEPAM 15 MG CAP PO PRN (14:15)
[2017-09-27] MEDS ORDERED: NALOXONE HCL 0.4 MG/ML AMP IV PUSH PRN (14:15)
[2017-09-27] MEDS ORDERED: MAGNESIUM HYDROXIDE SUSP 30 ML CUP PO PRN (14:15)
[2017-09-27] MEDS ORDERED: BISACODYL 10 MG SUPP RECTAL PRN (14:15)
[2017-09-27] MEDS ORDERED: SODIUM CHLORIDE 0.9% FLUSH 10 ML FLUSH IV FLUSH PRN (14:15)
[2017-09-27] MEDS ORDERED: METOCLOPRAMIDE HCL 10 MG/2 ML VIAL IV PUSH PRN (14:15)
[2017-09-27] MEDS ORDERED: SENNOSIDES 8.6 MG TAB PO PRN (14:15)
[2017-09-27] MEDS ORDERED: PANTOPRAZOLE SODIUM 40 MG VIAL IV PUSH SCH (15:00)
[2017-09-27] MEDS ORDERED: fentaNYL 50 MCG/HR PATCH T-DERMAL SCH (15:00)
[2017-09-27] MEDS: SODIUM CHLOR 0.45% 1000 ML INJ 1,000 ML IV SCH (15:02)
[2017-09-27 16:00] VITALS: BP 138/63; PULSE 80; RESP 14; TEMP 97; O2SAT 98
--- NOTE | 2017-09-27 16:23 | HHI.HP ---
HPI Service [facility] Primary Care Physician Maged Duff MD Admission Diagnosis acute pancreatitis, UTI Chief Complaint: diffuse pain with abnormal lipase and uti Travel History International Travel<30 Days: No Contact w/Intl Traveler <30 Da: No Traveled to Known Affected Are: No History of Present Illness 82-year-old female that presents to the ED for evaluation of chills and pain since 4:00 this morning. Per patient she's had some runny nose as well as body aches and feeling weak since 4:00 this morning. She states that yesterday she felt fine. About 2 weeks ago she in ER and had lab workup that was negative for anything other than possible UTI. She was treated for the flu secondary to her symptoms at the time that she was negative for the influenza test. She was started on Tamiflu and Bactrim and did well other than having some nausea from the medications. She denies any symptoms other than the one stated above. She states that her pain is 7 out of 10 on her body. Denies any specific chest pain or shortness of breath. She does have a history of asthma but denies any shortness of breath at this time. Per family members she was having some labored breathing when she was walking. She denies any recent travel. No other medical issues. She went to see her doctor on Saturday and had a urine that showed that UTI resolved. Patient is followed by pain clinic and just had several nerve roots cauterized lumbar and is scheduled for opposite side treatment Saturday.. She has some mild back pain and abdominal pain but on pain medications which help. No diarrhea. No bowel movement changes or urinary changes. No other medical problems at this time. She does have contact with her who has been admitted to the hospital for CHF and possible flu. Patient in ER had elevated lipase level and UTI admit for IV fluid start rocephin recheck labs ,CT abdomen and possible ultrasound. Review of Systems Gastrointestinal: COMPLAINS OF: Abdominal pain Musculoskeletal: COMPLAINS OF: Back pain Past Family Social History Past Medical History hypertension,mild dementia,neuropathy,GERD incontinence chronic neck and low back pain Past Surgical History tonsil,hysterectomy,gallbladder appendix,breast implant bladder stimulator with removal Reported Medications Premarin Vaginal (Estrogens, Conjugated Vaginal) 0.625 Mg/Gm Cream 1 Gm VAGINAL HS Reported Zofran (Ondansetron HCl) 4 Mg Tab 4 Mg PO Q6HR PRN Aspir-81 (Aspirin) 81 Mg Tabdr 1 Tab PO DAILY [place] 5-325 Tablet (Hydrocodone/Acetaminophen) 5 Mg-325 Mg Tablet 1 Tab PO TID PRN Fentanyl Patch 72 HR (Fentanyl) 50 Mcg/Hr Patch 50 Mcg T-DERMAL Q72H Remove old patch when new one placed. Donepezil 10 Mg Tab 10 Mg PO HS K-Tab (Potassium Chloride) 20 Meq Tab 20 Meq PO DAILY PRN Mirapex ER 24 HR (Pramipexole Dihydrochloride) 0.75 Mg Tab 0.75 Mg PO HS Prevacid (Lansoprazole) 30 Mg Capdr 30 Mg PO BID Norvasc (Amlodipine Besylate) 10 Mg Tab 10 Mg PO BID Gabapentin 300 Mg Cap 900 Mg PO TID Lasix (Furosemide) 40 Mg Tab 40 Mg PO DAILY PRN Premarin (Estrogens Conjugated) 1.25 Mg Tab 1.25 Mg PO DAILY Calcium (Oyster Shell) 500 Mg Tab 1 Tab PO BID Ventolin Hfa 18 GM Inh (Albuterol Sulfate) 90 Mcg/Act Aer 2 Puff INH Q6H PRN Allergies: Coded Allergies: adhesive (Unverified Allergy, Severe, Irritation, 09/27/17) duloxetine (Unverified Allergy, Severe, Nausea/Vomiting, 09/27/17) Social History did have one drink this week normally does not drink smoker Physical Exam Vital Signs Vital Signs Date Time Temp Pulse Resp B/P (MAP) Pulse Ox O2 Delivery O2 Flow Rate FiO2 09/27/17 12:56 89 20 164/68 (100) 98 09/27/17 11:21 97.5 84 18 166/71 (102) 100 Physical Exam GENERAL: This is a well-nourished, well-developed patient, in no apparent distress. SKIN: No rashes, ecchymoses or lesions. Cool and dry. HEAD: Atraumatic. Normocephalic. No temporal or scalp tenderness. EYES: Pupils equal round and reactive. Extraocular motions intact. No scleral icterus. No injection or drainage. ENT: Nose without bleeding, purulent drainage or septal hematoma. Throat without erythema, tonsillar hypertrophy or exudate. Uvula midline. Airway patent. NECK: Trachea midline. No JVD or lymphadenopathy. Supple, nontender, no meningeal signs. CARDIOVASCULAR: Regular rate and rhythm without murmurs, gallops, or rubs. RESPIRATORY: Clear to auscultation. Breath sounds equal bilaterally. No wheezes , rales, or rhonchi. GASTROINTESTINAL: Abdomen soft, non-tender, nondistended. No hepato-splenomegaly , or palpable masses. No guarding. MUSCULOSKELETAL: Extremities without clubbing, cyanosis, or edema. No joint tenderness, effusion, or edema noted. No calf tenderness. Negative Homans sign bilaterally. NEUROLOGICAL: Awake and alert. Cranial nerves II through XII intact. Motor and sensory grossly within normal limits. Five out of 5 muscle strength in all muscle groups. Normal speech. Laboratory Laboratory Tests Test 09/27/17 11:20 09/27/17 11:50 Urine Collection Type CLEAN CATCH Urine Color YELLOW Urine Turbidity CLEAR Urine pH 6.0 Urine Specific [place] 1.007 Urine Protein NEG Urine Glucose (UA) NEG Urine Ketones NEG Urine Occult Blood NEG Urine Nitrite NEG Urine Bilirubin NEG Urine Leukocyte Esterase SMALL Urine WBC 9-14 Urine Squamous Epithelial Cells 0-5 Urine Bacteria MOD Microscopic Urinalysis Comment CULTURE INDICATED White Blood Count 8.4 Red Blood Count 4.46 Hemoglobin 13.8 Hematocrit 41.5 Mean Corpuscular Volume 93.2 Mean Corpuscular Hemoglobin 31.0 Mean Corpuscular Hemoglobin Concent 33.2 Red Cell Distribution Width 12.9 Platelet Count 255 Mean Platelet Volume 8.3 Neutrophils (%) (Auto) 69.3 Lymphocytes (%) (Auto) 21.5 Monocytes (%) (Auto) 7.3 Eosinophils (%) (Auto) 1.1 Basophils (%) (Auto) 0.8 Neutrophils # (Auto) 5.8 Lymphocytes # (Auto) 1.8 Monocytes # (Auto) 0.6 Eosinophils # (Auto) 0.1 Basophils # (Auto) 0.1 CBC Comment DIFF FINAL Differential Comment Blood Urea Nitrogen 25 Creatinine 0.83 Random Glucose 119 Total Protein 7.0 Albumin 3.4 Calcium Level 9.8 Alkaline Phosphatase 70 Aspartate Amino Transf (AST/SGOT) 16 Alanine Aminotransferase (ALT/SGPT) 16 Total Bilirubin 0.3 Sodium Level 138 Potassium Level 3.8 Chloride Level 104 Carbon Dioxide Level 27.4 Anion Gap 7 Estimat Glomerular Filtration Rate 65 Lactic Acid Level 2.0 Lipase 1587 Date/Time Source Procedure Growth Status 09/27/17 11:50 Nasal Washing Influenza Types A,B Antigen ([place]) - Final NEGATIVE FOR FLU A AND B ANTIGEN.... Complete 09/27/17 11:20 Urine Clean Catch Urine Culture Pending Received Result Diagram: 09/27/17 1150 09/27/17 1150 Imaging Last 24 hours Impressions Chest X-Ray 09/27/17 1135 Signed Impressions: Service Date/Time: Wednesday, September 27, 2017 11:39 - CONCLUSION: No acute disease. Herman Morales MD Abdomen/Pelvis CT 09/27/17 0000 Signed Impressions: Service Date/Time: Wednesday, September 27, 2017 13:18 - CONCLUSION: 1. No acute process. 2. Colonic diverticulosis. 3. Status post cholecystectomy and hysterectomy. 4. Bilateral simple renal cysts. Tien Marie MD Course in er started on rocephin Caprini VTE Risk Assessment Caprini VTE Risk Assessment: No/Low Risk (score <= 1) Caprini Risk Assessment Model Point Value = 1 Point Value = 2 Point Value = 3 Point Value = 5 Age 41-60 Minor surgery BMI > 25 kg/m2 Swollen legs Varicose veins or History of unexplained or recurrent spontaneous Oral contraceptives or hormone replacement Sepsis (< 1 month) Serious lung disease, including pneumonia (< 1 month) Abnormal pulmonary function Acute myocardial infarction Congestive heart failure (< 1 month) History of inflammatory bowel disease Medical patient at bed rest Age 61-74 Arthroscopic surgery Major open surgery (> 45 min) Laparoscopic surgery (> 45 min) Malignancy Confined to bed (> 72 hours) Immobilizing plaster cast Central venous access Age >= 75 History of VTE Family history of VTE Factor V Leiden Prothrombin [id number] Lupus anticoagulant Anticardiolipin antibodies Elevated serum homocysteine Heparin-induced thrombocytopenia Other congenital or acquired thrombophilia Stroke (< 1 month) Elective arthroplasty Hip, pelvis, or leg fracture Acute spinal cord injury (< 1 month) Prophylaxis Regimen Total Risk Factor Score Risk Level Prophylaxis Regimen 0-1 Low Early ambulation 2 Moderate Order ONE of the following: *Sequential Compression Device (SCD) *Heparin 5000 units SQ BID 3-4 Higher Order ONE of the following medications: *Heparin 5000 units SQ TID *Enoxaparin/Lovenox 40 mg SQ daily (WT < 150 kg, CrCl > 30 mL/min) *Enoxaparin/Lovenox 30 mg SQ daily (WT < 150 kg, CrCl > 10-29 mL/min) *Enoxaparin/Lovenox 30 mg SQ BID (WT < 150 kg, CrCl > 30 mL/min) AND/OR *Sequential Compression Device (SCD) 5 or more Highest Order ONE of the following medications: *Heparin 5000 units SQ TID (Preferred with Epidurals) *Enoxaparin/Lovenox 40 mg SQ daily (WT < 150 kg, CrCl > 30 mL/min) *Enoxaparin/Lovenox 30 mg SQ daily (WT < 150 kg, CrCl > 10-29 mL/min) *Enoxaparin/Lovenox 30 mg SQ BID (WT < 150 kg, CrCl > 30 mL/min) AND *Sequential Compression Device (SCD) Assessment and Plan Problem List: (1) Pancreatitis, acute ICD Codes: K85.90 - Acute pancreatitis without necrosis or infection, unspecified Status: Acute Plan: CT abdomen negative will get ultrasound as well ? lipase elevation may be related to recent nerve root cauterization which also planned for Saturday will recheck labs in am and probable discharge in am. (2) Chronic back pain ICD Codes: M54.9 - Dorsalgia, unspecified; G89.29 - Other chronic pain Status: Chronic Plan: as above continue home medications (3) UTI (urinary tract infection) ICD Codes: N39.0 - Urinary tract infection, site not specified Status: Chronic Plan: empiric rocephin 1 gm IV u/c/s sent Assessment and Plan probable discharge tomorrow am. Code Status full Discussed Condition With patient Problem Qualifiers (1) Pancreatitis, acute: Qualified Codes: K85.90 - Acute pancreatitis without necrosis or infection, unspecified Jaun Valderrama MD Sep 27, 2017 16:23
[2017-09-27 20:00] VITALS: BP 147/67; PULSE 77; RESP 16; TEMP 97.3; O2SAT 98
[2017-09-27] MEDS: CALCIUM CARBONATE 1.25 GM (CA 500 MG) TAB PO SCH (20:14)
[2017-09-27] MEDS: GABAPENTIN 300 MG CAP PO SCH (20:14)
[2017-09-27] MEDS: DOCUSATE SODIUM 50 MG/SENNA 8.6 MG TAB PO SCH (20:14)
[2017-09-27] MEDS: SODIUM CHLORIDE 0.9% FLUSH 10 ML FLUSH IV FLUSH SCH (20:18)
[2017-09-27] MEDS ORDERED: PRAMIPEXOLE DIHYDROCHLORIDE 1 MG TAB PO SCH (21:00)
[2017-09-27] MEDS ORDERED: DONEPEZIL HCL 5 MG TAB PO SCH (21:00)
[2017-09-27] MEDS ORDERED: ESTROGENS CONJUGATED VAG CREA 15 APPL/30 GM TUBE VAGINAL SCH (21:00)
[2017-09-27] MEDS ORDERED: PRAMIPEXOLE 0.75 MG PO SCH (21:00)
[2017-09-27] MEDS: ACETAMINOPHEN/HYDROcodone 325 MG/5 MG TAB PO PRN (21:00)
[2017-09-28] VITALS: BP 150/74; PULSE 73; RESP 16; TEMP 97.1; O2SAT 98
[2017-09-28] MEDS: SODIUM CHLOR 0.45% 1000 ML INJ 1,000 ML IV SCH (04:02)
[2017-09-28 07:01] LABS: AUTOMATED NEUTROPHIL # 4.8 TH/MM3 (1.8-7.7); BASOPHIL % 0.6 % (0.0-2.0); EOSINOPHIL # 0.1 TH/MM3 (0-0.4); EOSINOPHIL % 1.8 % (0.0-4.0); HEMATOCRIT 38.9 % (35.0-46.0); HEMOGLOBIN 12.7 GM/DL (11.6-15.3); LYMPH % 26.7 % (9.0-44.0); MEAN CELL VOLUME 94.1 FL (80.0-100.0); MEAN CORPUSCULAR HEMOGLOBIN 30.6 PG (27.0-34.0); MEAN CORPUSCULAR HGB CONC 32.6 % (32.0-36.0); MEAN PLATELET VOLUME 8.2 FL (7.0-11.0); MONO % 9.5 % (0.0-8.0); MONOCYTE # 0.7 TH/MM3 (0-0.9); NEUT % 61.4 % (16.0-70.0); PLATELET COUNT 226 TH/MM3 (150-450); RED BLOOD COUNT 4.13 MIL/MM3 (4.00-5.30); RED CELL DISTRIBUTION WIDTH 12.8 % (11.6-17.2); WHITE BLOOD COUNT 7.6 TH/MM3 (4.0-11.0)
[2017-09-28 07:22] LABS: CHLORIDE 107 MEQ/L (98-107); SODIUM (NA) 140 MEQ/L (136-145)
[2017-09-28 07:31] LABS: BICARBONATE 28.9 MEQ/L (21.0-32.0); BLOOD UREA NITROGEN 15 MG/DL (7-18); CALCIUM 9.8 MG/DL (8.5-10.1); GLUCOSE,RANDOM 88 MG/DL (74-106)
[2017-09-28 07:34] LABS: AST (GOT) 10 U/L (15-37); CREATININE 0.73 MG/DL (0.50-1.00); GLOMERULAR FILTRATION RATE 76 ML/MIN (>89)
[2017-09-28 07:35] LABS: ALT (GPT) 13 U/L (10-53); TOTAL BILIRUBIN ADULT 0.5 MG/DL (0.2-1.0)
[2017-09-28 07:36] LABS: TOTAL PROTEIN 6.2 GM/DL (6.4-8.2)
[2017-09-28 07:37] LABS: ALKALINE PHOSPHATASE 66 U/L (45-117)
[2017-09-28 08:00] VITALS: BP 180/80; PULSE 77; RESP 13; TEMP 98.2; O2SAT 98
[2017-09-28] MEDS: CALCIUM CARBONATE 1.25 GM (CA 500 MG) TAB PO SCH (08:50)
[2017-09-28] MEDS: GABAPENTIN 300 MG CAP PO SCH (08:50)
[2017-09-28] MEDS: SODIUM CHLORIDE 0.9% FLUSH 10 ML FLUSH IV FLUSH SCH (08:50)
[2017-09-28] MEDS: DOCUSATE SODIUM 50 MG/SENNA 8.6 MG TAB PO SCH (08:50)
[2017-09-28] MEDS ORDERED: ASPIRIN EC 81 MG TABEC PO SCH (09:00)
[2017-09-28] MEDS ORDERED: ESTROGENS CONJUGATED 1.25 MG TAB PO SCH (09:00)
--- NOTE | 2017-09-28 10:34 | RADRPT ---
EXAM DATE/TIME: 09/28/2017 09:06 [facility] COMPARISON: No previous studies available for comparison. INDICATIONS : Pancreatitis. MEDICAL HISTORY : Hypertension. Gastroesophageal reflux disease. Neuropathy. Restless leg syndrome. Anticoagulant the rapy. Asthma. Incontinence. Arthritis. Benign thyroid tumor. Skin cancer. SURGICAL HISTORY : Tonsillectomy. Appendectomy. Cholecystectomy. Bilateral cataract surgery. Breast biopsies. Hysterecto my. Bladder stimulator. ENCOUNTER: Initial ACUITY: 1 day PAIN SCORE: 3/10 LOCATION: Right upper quadrant MEASUREMENTS: LIVER: 13.7 cm length COMMON DUCT: 10 mm RIGHT KIDNEY: 8.3 x 3.1 x 4.8 cm FINDINGS: LIVER: Normal echotexture without focal lesion or ductal dilatation. COMMON DUCT: No intraluminal mass or stone visualized. The common duct is slightly prominent proximally but still within normal limits given previous cholecystectomy. GALLBLADDER: Surgically absent. PANCREAS: The visualized portions are within normal limits. Simple cysts right kidney measures 2.9 x 1.8 x 2.3 cm. CONCLUSION: 1. Status post cholecystectomy. 2. Pancreas appears unremarkable. Jaime Hughes MD on September 28, 2017 at 10:29 Board Certified Radiologist. This report was verified electronically.
[2017-09-28 12:00] VITALS: BP 136/64; PULSE 73; RESP 15; TEMP 98.2; O2SAT 96
[2017-09-28] MEDS ORDERED: cefTRIAXone INJ 1,000 MG in SODIUM CHLORIDE 0.9% INJ 100 ML IV SCH (12:00)
[2017-09-28] MEDS: ACETAMINOPHEN/HYDROcodone 325 MG/5 MG TAB PO PRN (12:10)
--- NOTE | 2017-09-28 12:55 | HHI.PR ---
Subjective Remarks states she feels well this am. ate a muffin after her ultrasound with out any problems, no chills, some leg pain from her neuropathy, states she sees pain management on saturday. noted her blood pressure is high today is on a new blood pressure medication but doesnt recallits name, no abdominal pain Objective Vitals Vital Signs Date Time Temp Pulse Resp B/P (MAP) Pulse Ox O2 Delivery O2 Flow Rate FiO2 09/28/17 08:00 98.2 77 13 180/80 (113) 98 09/28/17 00:00 97.1 73 16 150/74 (99) 98 09/27/17 20:00 97.3 77 16 147/67 (93) 98 09/27/17 16:00 97.0 80 14 138/63 (88) 98 09/27/17 12:56 89 20 164/68 (100) 98 Result Diagram: 09/28/17 0623 09/28/17 0623 Imaging Last 24 hours Impressions Pancreas Ultrasound 09/28/17 0000 Signed Impressions: Service Date/Time: Thursday, September 28, 2017 09:06 - CONCLUSION: 1. Status post cholecystectomy. 2. Pancreas appears unremarkable. Jaime Hughes MD Last 24 hours Impressions Chest X-Ray 09/27/17 1135 Signed Impressions: Service Date/Time: Wednesday, September 27, 2017 11:39 - CONCLUSION: No acute disease. Herman Morales MD Abdomen/Pelvis CT 09/27/17 0000 Signed Impressions: Service Date/Time: Wednesday, September 27, 2017 13:18 - CONCLUSION: 1. No acute process. 2. Colonic diverticulosis. 3. Status post cholecystectomy and hysterectomy. 4. Bilateral simple renal cysts. Tien Marie MD Objective Remarks Lying in bed, looks comfortable alert lungs cta heart rrr no murmurs abdomen good bowel sounds, nontender ext no c/c/e A/P Problem List: (1) Pancreatitis, acute ICD Codes: K85.90 - Acute pancreatitis without necrosis or infection, unspecified Status: Resolved Plan: ? lipase elevation may be related to recent nerve root cauterization which also planned for Saturday, labs imaging all normal and patient without abdominal pain today. (2) Chronic back pain ICD Codes: M54.9 - Dorsalgia, unspecified; G89.29 - Other chronic pain Status: Chronic Plan: continue home medications, to f/u with pain management as outpatient (3) UTI (urinary tract infection) ICD Codes: N39.0 - Urinary tract infection, site not specified Status: Acute Plan: empiric rocephin 1 gm IV u/c/s sent , she states bactrim makes her sick and would like to go home on cipro if need be. She has received her dose of rocephin today. Will write script for cipro and f/u cultures (4) Hypertension ICD Codes: I10 - Essential (primary) hypertension Status: Chronic Plan: was able to look in [facility] EHR and she is suppose to be on valsartan 80 mg as well, will order Assessment and Plan discharge home with family today Problem Qualifiers (1) Pancreatitis, acute: Qualified Codes: K85.90 - Acute pancreatitis without necrosis or infection, unspecified (2) Hypertension: Qualified Codes: I10 - Essential (primary) hypertension Fanny Larkin MD Sep 28, 2017 12:55
[2017-09-28] MEDS ORDERED: VALSARTAN 80 MG TAB PO SCH (13:00)
[2017-09-28] MEDS ORDERED: VALS1TAB64 PO (13:03)
[2017-09-28] MEDS ORDERED: CIPR-9 PO (13:03)
[2017-09-30] MEDS ORDERED: REMOVE OLD DURAGESIC (FENTANYL) PATCH T-DERMAL SCH (15:00)
== END 2017-09-28 14:12 | disposition home or self-care (01) ==
LOC: PHEFT 11:17 → PHEDA 12:40 → PH3B 14:07
PROVIDERS: ADMIT Internal Medicine; ATTEND Internal Medicine
DX: K85.90 Acute pancreatitis without necrosis or infection, unspecified (principal); N39.0 Urinary tract infection, site not specified; B96.20 Unspecified Escherichia coli [E. coli] as the cause of diseases classified elsewhere; I10 Essential (primary) hypertension; M54.9 Dorsalgia, unspecified; G89.29 Other chronic pain; F03.90 Unspecified dementia, unspecified severity, without behavioral disturbance, psychotic disturbance, mood disturbance, and anxiety; G25.81 Restless legs syndrome; G62.9 Polyneuropathy, unspecified; K21.9 Gastro-esophageal reflux disease without esophagitis; N28.1 Cyst of kidney, acquired; K57.30 Diverticulosis of large intestine without perforation or abscess without bleeding; J45.909 Unspecified asthma, uncomplicated; Z90.49 Acquired absence of other specified parts of digestive tract; Z90.710 Acquired absence of both cervix and uterus
CPT/HCPCS: 71045; 74177; 76705; 80053; 81001; 83605; 83690; 85025; 87077; 87086; 87186; 87804; 96361; 96365; 96375; 99285; C9113; G0378; J0696; J7040; Q9967

== ENCOUNTER 2017-10-20 18:40 | Emergency (ER) | payer MEDICARE ==
[~2017-10-20] VITALS: Ht 162.6 cm; Wt 68.0 kg
[~2017-10-20 18:40] MED LIST changes: -BACT800T5 PO; +CIPR-9 PO; -OSEL75 PO; +VALS1TAB64 PO
[2017-10-20 18:43] VITALS: BP 167/71; PULSE 18; PULSE 88; RESP 16; TEMP 98.2; O2SAT 99
--- NOTE | 2017-10-20 19:17 | PD ---
HPI Chief Complaint: Fall Time Seen by Provider: 19:13 Travel History International Travel<30 days: No Contact w/Intl Traveler<30days: No Traveled to known affect area: No History of Present Illness HPI 82-year-old female patient presents to the ER today, states that she had tripped on the stairs at the warming the ureter and fell onto her back, and states that her back has been hurting ever since. She was able to get up on her own and able to walk afterwards. She denies any head injury or loss of consciousness. She denies any other injuries. Modifying Factors: None Associated Signs & Symptoms: Trip and fall on stairs, lower back pain Risk Factors: None PFSH Past Medical History Hx Anticoagulant Therapy: Yes (BABY ASA DAILY) Arthritis: Yes Asthma: Yes (ONLY AROUND CIGARETTE SMOKE) Anxiety: Yes Depression: Yes Cancer: Yes (left outer nare ) Cardiovascular Problems: Yes (HTN) Dementia: Yes Diabetes: No Endocrine: No Gastrointestinal Disorders: Yes (ACID REFLUX) GERD: Yes Genitourinary: Yes (INCONTINENCE) Hepatitis: No Hiatal Hernia: No Hypertension: Yes Immune Disorder: No Musculoskeletal: Yes (OA/PAIN/BACK AND NECK PROBLEMS) Neurologic: Yes (NEUROPATHY, RESTLESS LEG, SHINGLES) Psychiatric: No Reproductive: No Respiratory: Yes (ASTHMA) Immunizations Current: Yes Pancreatitis: Yes Pneumonia: Yes (CHILDHOOD) Shingles: Yes Thyroid Disease: Yes (THYROID GOITER) Tetanus Vaccination: > 5 Years Influenza Vaccination: Yes ?: Not Menopausal: Yes : 3 Para: 3 Past Surgical History Abdominal Surgery: Yes (HYSTERECTOMY,NEFTALY,APPENDECTOMY) AICD: No Appendectomy: Yes Body Medical Devices: BREAST IMPLANTS Cardiac Surgery: No Cholecystectomy: Yes Ear Surgery: No Endocrine Surgery: Yes (BENIGN THYROID TUMOR) Eye Surgery: Yes (CATARACT SURGERY) Genitourinary Surgery: Yes (SEVERAL BLADDER PROCEDURES/SLING/STIMULATOR) Gynecologic Surgery: No Hysterectomy: Yes Joint Replacement: No Oral Surgery: Yes (TONSILLECTOMY) Pacemaker: No Thoracic Surgery: Yes (BREAST BIOPSIES/BENIGN) Tonsillectomy: Yes Other Surgery: Yes (BLADDER STIMULATOR) Social History Alcohol Use: Yes (RARE) Tobacco Use: No Substance Use: No Allergies-Medications (Allergen,Severity, Reaction): Coded Allergies: adhesive (Unverified Allergy, Severe, Irritation, 10/20/17) duloxetine (Unverified Allergy, Severe, Nausea/Vomiting, 10/20/17) Reported Meds & Prescriptions Reported Meds & Active Scripts Active Valsartan 80 Mg Tab 80 Mg PO DAILY 30 Days Reported Zofran (Ondansetron HCl) 4 Mg Tab 4 Mg PO Q6HR PRN Aspir-81 (Aspirin) 81 Mg Tabdr 1 Tab PO HS [place] 5-325 Tablet (Hydrocodone/Acetaminophen) 5 Mg-325 Mg Tablet 1 Tab PO TID PRN Fentanyl Patch 72 HR (Fentanyl) 50 Mcg/Hr Patch 50 Mcg T-DERMAL Q72H Remove old patch when new one placed. Donepezil 10 Mg Tab 10 Mg PO HS K-Tab (Potassium Chloride) 20 Meq Tab 20 Meq PO DAILY PRN Mirapex ER 24 HR (Pramipexole Dihydrochloride) 0.75 Mg Tab 0.75 Mg PO HS Prevacid (Lansoprazole) 30 Mg Capdr 30 Mg PO BID Norvasc (Amlodipine Besylate) 10 Mg Tab 10 Mg PO BID Gabapentin 300 Mg Cap 900 Mg PO TID Lasix (Furosemide) 40 Mg Tab 40 Mg PO HS PRN Premarin (Estrogens Conjugated) 1.25 Mg Tab 1.25 Mg PO DAILY Calcium (Oyster Shell) 500 Mg Tab 1 Tab PO BID Ventolin Hfa 18 GM Inh (Albuterol Sulfate) 90 Mcg/Act Aer 2 Puff INH Q6H PRN Review of Systems Except as stated in HPI: all other systems reviewed are Neg Physical Exam Narrative GENERAL: Well-developed elderly white female patient currently and mild distress. Awake and oriented 3. SKIN: Focused skin assessment warm/dry. HEAD: Atraumatic. Normocephalic. EYES: Pupils equal and round. No scleral icterus. No injection or drainage. ENT: No nasal bleeding or discharge. Mucous membranes pink and moist. NECK: Trachea midline. No JVD. Supple. CARDIOVASCULAR: Regular rate and rhythm. No murmur appreciated. RESPIRATORY: No accessory muscle use. Clear to auscultation. Breath sounds equal bilaterally. GASTROINTESTINAL: Abdomen soft, non-tender, nondistended. Hepatic and splenic margins not palpable. BACK: No CVA tenderness. No rash. There is no midline C-spine, L-spine or T- spine tenderness on palpation or deformities in the midline. There is a notable ecchymosis close to the left SI joint area which is mildly tender to palpation. No obvious deformities identified.. MUSCULOSKELETAL: No obvious deformities. No clubbing. No cyanosis. No edema. NEUROLOGICAL: Awake and alert. No obvious cranial nerve deficits. Motor grossly within normal limits. Normal speech. PSYCHIATRIC: Appropriate mood and affect; insight and judgment normal. Data Data Last Documented VS Vital Signs Date Time Temp Pulse Resp B/P (MAP) Pulse Ox O2 Delivery O2 Flow Rate FiO2 10/20/17 18:43 98.2 88 16 167/71 (103) 99 Orders Orders Spine, Lumbar Comp W/Obliq (10/20/17 19:13) Sacrum (10/20/17 ) Ed Discharge Order (10/20/17 20:11) MDM Medical Decision Making Medical Screen Exam Complete: Yes Emergency Medical Condition: Yes Medical Record Reviewed: Yes Differential Diagnosis Fall, lower back pain: Fractures versus contusions Narrative Course X-rays did not show any signs of acute fractures. At this point, my plan would be to release her with symptomatic relief for pain. Follow-up with primary care physician. Return for any worsening in pain is needed. The plan has been discussed with her and she states understanding. Diagnosis Primary Impression: Fall (on) (from) other stairs and steps, initial encounter Additional Impression: Back contusion Disposition: 01 DISCHARGE HOME Condition: Stable Augustus Aguilar MD Oct 20, 2017 19:17
--- NOTE | 2017-10-20 20:04 | RADRPT ---
EXAM DATE/TIME: 10/20/2017 19:20 [facility] COMPARISON: No previous studies available for comparison. INDICATIONS : Lower back pain after falling. MEDICAL HISTORY : None. SURGICAL HISTORY : None. ENCOUNTER: Initial ACUITY: 1 day PAIN SCORE: 8/10 LOCATION: sacrum FINDINGS: Two-view examination of the sacrum demonstrates no evidence of fracture or malalignment. The sacral ala and foramina appear symmetric and intact. Bones are osteopenic. The prevertebral soft tissues ar e within normal limits. CONCLUSION: 1. Osteopenia. No acute fracture. Gene Becerra MD on October 20, 2017 at 20:02 Board Certified Radiologist. This report was verified electronically.
--- NOTE | 2017-10-20 20:06 | RADRPT ---
EXAM DATE/TIME: 10/20/2017 19:20 [facility] COMPARISON: No previous studies available for comparison. INDICATIONS : Lower back pain after falling. MEDICAL HISTORY : None. SURGICAL HISTORY : None. ENCOUNTER: Initial ACUITY: 1 day PAIN SCORE: 8/10 LOCATION: lumbar FINDINGS: There is a rotatory lumbar levoscoliosis. Moderate to severe degenerative disc disease in the lumbar spine. No acute fracture or spondylolisthesis. CONCLUSION: 1. Moderate to severe degenerative disc disease with levoscoliosis. No acute fracture. Moderate facet arthropathy in the lower spine. Gene Becerra MD on October 20, 2017 at 20:04 Board Certified Radiologist. This report was verified electronically.
== END 2017-10-20 20:37 | disposition home or self-care (01) ==
LOC: PHED 18:40
DX: S30.0XXA Contusion of lower back and pelvis, initial encounter (principal); M51.36 Other intervertebral disc degeneration, lumbar region; M41.9 Scoliosis, unspecified; M19.90 Unspecified osteoarthritis, unspecified site; I10 Essential (primary) hypertension; F03.90 Unspecified dementia, unspecified severity, without behavioral disturbance, psychotic disturbance, mood disturbance, and anxiety; G62.9 Polyneuropathy, unspecified; G25.81 Restless legs syndrome; W10.9XXA Fall (on) (from) unspecified stairs and steps, initial encounter
CPT/HCPCS: 72110; 99283

== ENCOUNTER 2018-02-03 20:31 | Emergency (ER) | payer MEDICARE ==
[~2018-02-03] VITALS: Ht 162.6 cm; Wt 69.4 kg
[~2018-02-03 20:31] MED LIST changes: -CIPR-9 PO; -ESTR0.62 VAGINAL
[2018-02-03 20:34] VITALS: BP 194/83; PULSE 82; RESP 20; TEMP 97.7; O2SAT 96
--- NOTE | 2018-02-03 21:09 | PD ---
HPI Chief Complaint: Head Injury Time Seen by Provider: 20:43 Travel History International Travel<30 days: No Contact w/Intl Traveler<30days: No Traveled to known affect area: No History of Present Illness HPI Patient 82-year-old female on aspirin and no blood thinners presents emergency department after closed head injury. Patient states that she was washing her hands after changing her upstairs in the patient's room when the paper towel dispenser dislodged from the wall and hit her on the left forehead. According to patient's daughter she complained like she was going to pass out but never actually did. No other injuries. Patient complains of generalized body aches which she states she has a history of as she has a history of arthritis and none of these are new for her. No chest pain no shortness of breath no abdominal pain no dizziness no focalized weakness. Symptoms started just prior to arrival, minimal, associated signs and symptoms in context as above per [facility] Past Medical History Hx Anticoagulant Therapy: Yes (BABY ASA DAILY) Arthritis: Yes Asthma: Yes (ONLY AROUND CIGARETTE SMOKE) Anxiety: Yes Depression: Yes Cancer: Yes (left outer nare ) Cardiovascular Problems: Yes (HTN) Dementia: Yes Diabetes: No Endocrine: No Gastrointestinal Disorders: Yes (ACID REFLUX) GERD: Yes Genitourinary: Yes (INCONTINENCE) Hepatitis: No Hiatal Hernia: No Hypertension: Yes Immune Disorder: No Musculoskeletal: Yes (OA/PAIN/BACK AND NECK PROBLEMS) Neurologic: Yes (NEUROPATHY, RESTLESS LEG, SHINGLES) Psychiatric: No Reproductive: No Respiratory: Yes (ASTHMA) Immunizations Current: Yes Pancreatitis: Yes Pneumonia: Yes (CHILDHOOD) Shingles: Yes Thyroid Disease: Yes (THYROID GOITER) Menopausal: Yes : 3 Para: 3 Past Surgical History Abdominal Surgery: Yes (HYSTERECTOMY,NEFTALY,APPENDECTOMY) AICD: No Appendectomy: Yes Body Medical Devices: BREAST IMPLANTS Cardiac Surgery: No Cholecystectomy: Yes Ear Surgery: No Endocrine Surgery: Yes (BENIGN THYROID TUMOR) Eye Surgery: Yes (CATARACT SURGERY) Genitourinary Surgery: Yes (SEVERAL BLADDER PROCEDURES/SLING/STIMULATOR) Gynecologic Surgery: No Hysterectomy: Yes Joint Replacement: No Oral Surgery: Yes (TONSILLECTOMY) Pacemaker: No Thoracic Surgery: Yes (BREAST BIOPSIES/BENIGN) Tonsillectomy: Yes Other Surgery: Yes (BLADDER STIMULATOR) Social History Alcohol Use: Yes (RARE) Tobacco Use: No Substance Use: No Allergies-Medications (Allergen,Severity, Reaction): Coded Allergies: adhesive (Verified Allergy, Severe, Irritation, 02/03/18) duloxetine (Verified Allergy, Severe, Nausea/Vomiting, 02/03/18) Reported Meds & Prescriptions Reported Meds & Active Scripts Active Valsartan 80 Mg Tab 80 Mg PO DAILY 30 Days Reported Zofran (Ondansetron HCl) 4 Mg Tab 4 Mg PO Q6HR PRN Aspir-81 (Aspirin) 81 Mg Tabdr 1 Tab PO HS [place] 5-325 Tablet (Hydrocodone/Acetaminophen) 5 Mg-325 Mg Tablet 1 Tab PO TID PRN Fentanyl Patch 72 HR (Fentanyl) 50 Mcg/Hr Patch 50 Mcg T-DERMAL Q72H Remove old patch when new one placed. Donepezil 10 Mg Tab 10 Mg PO HS K-Tab (Potassium Chloride) 20 Meq Tab 20 Meq PO DAILY PRN Mirapex ER 24 HR (Pramipexole Dihydrochloride) 0.75 Mg Tab 0.75 Mg PO HS Prevacid (Lansoprazole) 30 Mg Capdr 30 Mg PO BID Norvasc (Amlodipine Besylate) 10 Mg Tab 10 Mg PO BID Gabapentin 300 Mg Cap 900 Mg PO TID Lasix (Furosemide) 40 Mg Tab 40 Mg PO HS PRN Premarin (Estrogens Conjugated) 1.25 Mg Tab 1.25 Mg PO DAILY Calcium (Oyster Shell) 500 Mg Tab 1 Tab PO BID Ventolin Hfa 18 GM Inh (Albuterol Sulfate) 90 Mcg/Act Aer 2 Puff INH Q6H PRN Review of Systems Except as stated in HPI: all other systems reviewed are Neg Physical Exam Narrative GENERAL: Well-developed well-nourished no obvious distress SKIN: Focused skin assessment warm/dry. HEAD: Atraumatic. Normocephalic. No raccoons eyes no hall signs, no forehead contusion appreciated peer EYES: Pupils equal and round. No scleral icterus. No injection or drainage. ENT: No nasal bleeding or discharge. Mucous membranes pink and moist. NECK: Trachea midline. No JVD. CARDIOVASCULAR: Regular rate and rhythm. No murmur appreciated. RESPIRATORY: No accessory muscle use. Clear to auscultation. Breath sounds equal bilaterally. GASTROINTESTINAL: Abdomen soft, non-tender, nondistended. Hepatic and splenic margins not palpable. MUSCULOSKELETAL: No obvious deformities. No clubbing. No cyanosis. No edema. NEUROLOGICAL: Awake and alert. Cranial nerves II through XII grossly intact and nonfocal, 5 out of 5 strength in all 4 extremity's, cerebellar testing negative, ambulates with an even narrow-base gait. PSYCHIATRIC: Appropriate mood and affect; insight and judgment normal. Data Data Last Documented VS Vital Signs Date Time Temp Pulse Resp B/P (MAP) Pulse Ox O2 Delivery O2 Flow Rate FiO2 02/03/18 21:08 Room Air 02/03/18 20:34 97.7 82 20 194/83 (120) 96 Orders Orders Ed Discharge Order (02/03/18 21:06) MDM Medical Decision Making Medical Screen Exam Complete: Yes Emergency Medical Condition: Yes Differential Diagnosis Closed head injury, concussion, neck injury is excluded by Nexus criteria, intracranial hemorrhage seems unlikely peer Narrative Course Patient is a delightful 82-year-old female who appears quite well in no obvious distress. I do not see any evidence of head trauma. Discussed with her and her daughter that she cannot be excluded by clinical decision rules as far as head injury but she has an exceedingly low mechanism of injury. I had offered a CAT scan of the head and they declined currently. I discussed that at any time should they change her mind he can return for repeat evaluation. I also discussed red flag signs symptoms that should prompt emergent return or even calling [phone] 1 for another evaluation. They verbalized understanding and agreement. They wish for discharge at this time. Diagnosis Primary Impression: Closed head injury Additional Instructions: If you have any concerning symptoms including headache, visual difficulties, altered mental status return to the ER immediately for consideration of CT scan. Disposition: 01 DISCHARGE HOME Condition: Stable Silvio Lancaster MD Feb 03, 2018 21:09
== END 2018-02-03 21:28 | disposition home or self-care (01) ==
LOC: PHED 20:31
DX: S09.90XA Unspecified injury of head, initial encounter (principal); R52 Pain, unspecified; M19.90 Unspecified osteoarthritis, unspecified site; J45.909 Unspecified asthma, uncomplicated; F03.90 Unspecified dementia, unspecified severity, without behavioral disturbance, psychotic disturbance, mood disturbance, and anxiety; I10 Essential (primary) hypertension; G62.9 Polyneuropathy, unspecified; K21.9 Gastro-esophageal reflux disease without esophagitis; W22.8XXA Striking against or struck by other objects, initial encounter
CPT/HCPCS: 99283